=== PATIENT | female | born 1985 | race Caucasian/White ===

== ENCOUNTER 2016-04-07 12:14 | Emergency (ER) | payer OTHER ==
[~2016-04-07] VITALS: Ht 167.6 cm; Wt 97.5 kg
[~2016-04-07 12:14] MED LIST: ACET-704 PO; CYCL10TA2 PO
[2016-04-07 13:57] VITALS: BP 119/56
--- NOTE | 2016-04-07 14:22 | RAD ---
Exam performed: 2 views of the chest. Indication: cough with productive green sputum for 3 days Date of Service:04/07/2016 4:06 PM . Comparison : None available. Findings: PA and lateral radiographs of the chest reveal a normal cardiomediastinal contour. The lungs are clear. No pleural fluid is seen. The visualized osseous structures are unremarkable. Impression: Radiographically normal chest.
--- NOTE | 2016-04-07 14:25 | PHYS DOC ---
Past Medical History Past Medical History: No Pertinent History Past Surgical History: , Tonsillectomy, Tubal ligation Additional Past Surgical Histo: tubal ligation Alcohol Use: None Drug Use: None Adult General Chief Complaint Chief Complaint: COUGH HPI HPI Patient is a 31 year old female presents the emergency department stating that she's had a cough and congestion for the last 3-4 days. She states that she's been having fevers at home. Here in the emergency department she is afebrile. Patient states she's been having a productive cough that is green in color. She has not received the flu immunization this year. Patient states that she has had a sore throat as well. She states that she's been taken Tylenol and ibuprofen and Mucinex and [id number] cough medication without relief. Review of Systems Review of Systems Constitutional: subjective fever Eyes: Denies change in visual acuity, redness, or eye pain [] HENT: nasal congestion denies sore throat [] Respiratory: green productive cough denies shortness of breath [] Cardiovascular: No additional information not addressed in HPI [] GI: Denies abdominal pain, nausea, vomiting, bloody stools or diarrhea [] : Denies dysuria or hematuria [] Musculoskeletal: Denies back pain or joint pain [] Integument: Denies rash or skin lesions [] Neurologic: Denies headache, focal weakness or sensory changes [] Current Medications Current Medications Current Medications Medications (Trade) Dose Ordered Sig/Kieran Start Time Stop Time Status Last Admin Dose Admin Ibuprofen (Motrin) 800 mg 1X ONCE 04/07/16 14:45 04/07/16 14:46 DC 04/07/16 14:38 800 MG Allergies Allergies Allergies Coded Allergies Type Severity Reaction Last Updated Verified Latex, Natural Rubber Allergy Intermediate 07/23/15 Yes nickel Allergy Intermediate 07/23/15 Yes Physical Exam Physical Exam Constitutional: Well developed, well nourished, no acute distress, non-toxic appearance. [] HENT: Normocephalic, atraumatic, bilateral external ears normal, oropharynx moist, no oral exudates, nose normal. Bilateral tympanic membranes appear to be normal. Throat with erythematous and postnasal drip no exudate noted. No uvula deviation noted. Patient with no anterior cervical adenopathy noted. Eyes: PERRLA, EOMI, conjunctiva normal, no discharge. [] Neck: Normal range of motion, no tenderness, supple, no stridor. [] Cardiovascular:Heart rate regular rhythm, no murmur [] Lungs & Thorax: Bilateral breath sounds clear to auscultation [][] Skin: Warm, dry, no erythema, no rash. [] Back: No tenderness Extremities: No tenderness, no cyanosis, no clubbing, ROM intact, no edema. [] Neurologic: Alert and oriented X 3, normal motor function, normal sensory function, no focal deficits noted. [] Psychologic: Affect normal, judgement normal, mood normal. [] Current Patient Data Vital Signs Vital Signs Date Time Temp Pulse Resp B/P Pulse Ox O2 Delivery O2 Flow Rate FiO2 04/07/16 13:57 98.7 70 16 97 Room Air 98.7 Lab Values Laboratory Tests Test 04/07/16 14:03 Influenza Type A Antigen Negative (NEGATIVE) Influenza Type B Antigen Negative (NEGATIVE) EKG EKG [] Radiology/Procedures Radiology/Procedures [][facility] [address], [place] [id number] IMAGING REPORT Signed PATIENT: SINAN DEL ROSARIO ACCOUNT: [id number] : 1985 LOCATION: ER AGE: 31 SEX: F EXAM STATUS: REG ER ORD. PHYSICIAN: GURPREET CHRISTINE NP REASON: cough with productive green sputum PROCEDURE: CHEST PA & LATERAL Exam performed: 2 views of the chest. Indication: cough with productive green sputum for 3 days Date of Service:04/07/2016 4:06 PM . Comparison : None available. Findings: PA and lateral radiographs of the chest reveal a normal cardiomediastinal contour. The lungs are clear. No pleural fluid is seen. The visualized osseous structures are unremarkable. Impression: Radiographically normal chest. DICTATED and SIGNED BY: FELIX MATTA MD DATE: 04/07/16 [id number] CC: GURPREET CHRISTINE TRAFFIC CONTROL TECHNICIAN; NO PCP ~ Course & Med Decision Making Course & Med Decision Making Pertinent Labs and Imaging studies reviewed. (See chart for details) X-Ray Was Negative, Rapid Strep Was Negative. She was influenza swabs were negative. Patient will be placed on Zithromax and discharged home. Recommended cough medication [id number] such as Mucinex DM. Commended plenty of fluids such as water, propel or Gatorade. Signs and symptoms to return back to emergency department as been provided. Patient agrees with discharge instructions treatment regimens and follow-up recommendations. Dragon Disclaimer Dragon Disclaimer This electronic medical record was generated, in whole or in part, using a voice recognition dictation system. Departure Departure Impression: Primary Impression: URI (upper respiratory infection) Disposition: HOME, SELF-CARE Condition: STABLE Referrals: NO PCP (PCP) Patient Instructions: Upper Respiratory Infection, Adult, [id number] Additional Instructions: Home to rest Medication as prescribed Tylenol or ibuprofen for fever chills or generalized body aches and discomfort. You may take Mucinex DM [id number] to help with your cough and congestion. Follow-up the primary care physician in the next 5-7 days. Return back to emergency prior signs and symptoms become worse. Scripts Azithromycin (Zithromax)250 Mg [id number] Mg PO DAILY ANTI-BIOTIC #6 TAB Ref 0 Take 2 tablets today then 1 tablet daily until gone. Prov:GURPREET CHRISTINE NP 04/07/16 GURPREET CHRISTINE NP Apr 07, 2016 14:25
[2016-04-07 14:42] LABS: OBC FLU VALID
[2016-04-07] MEDS ORDERED: IBUPROFEN 800 MG TABLET. PO ONE (14:45)
[2016-04-07] MEDS ORDERED: AZIT250T PO (14:57)
[2016-04-07 15:19] LABS: NEGATIVE OBC STREP NEG; POSITIVE OBC STREP POS
== END 2016-04-07 15:34 | disposition home or self-care (01) ==
LOC: ER 12:14
DX: J06.9 Acute upper respiratory infection, unspecified (principal); Z91.040 Latex allergy status; Z91.048 Other nonmedicinal substance allergy status
CPT/HCPCS: 71020; 87070; 87804; 87880; 99285-25

== ENCOUNTER 2019-12-13 14:48 | Emergency (ER) | payer SELFPAY ==
[~2019-12-13] VITALS: Ht 167.6 cm; Wt 100.0 kg
[~2019-12-13 14:48] MED LIST changes: +AZIT250T PO
--- NOTE | 2019-12-13 15:06 | PHYS DOC ---
Past Medical History Past Medical History: No Pertinent History Past Surgical History: , Tonsillectomy, Tubal ligation Additional Past Surgical Histo: tubal ligation Smoking Status: Current Every Day Smoker Alcohol Use: None Drug Use: None General Adult EDM: Chief Complaint: INSECT BITE HPI: HPI: History obtained from patient. Patient is a 34-year-old female with history of IV drug abuse 4 months ago who presents with chief complaint of lesion to left posterior thigh. She has noticed this for 1 week. States it is flat and red. States it is somewhat circular in nature. Notes it is somewhat crusted and scaly over the top. Denies fevers. Denies pain. Denies redness surrounding the area. Denies any vomiting. Denies any history of MRSA. States she thinks she may been bitten by a spider. Does not report any shaving activity in that area. Denies drainage from the wound. No other complaints. Review of Systems: Review of Systems: Constitutional: Denies fever or chills. [] Eyes: Denies change in visual acuity. [] HENT: Denies nasal congestion or sore throat. [] Respiratory: Denies cough or shortness of breath. [] Cardiovascular: Denies chest pain or edema. [] GI: Denies abdominal pain, nausea, vomiting, bloody stools or diarrhea. [] : Denies dysuria. [] Musculoskeletal: Denies back pain or joint pain. [] Integument: Positive for rash Neurologic: Denies headache, focal weakness or sensory changes. [] Endocrine: Denies polyuria or polydipsia. [] Lymphatic: Denies swollen glands. [] Psychiatric: Denies depression or anxiety. [] Heart Score: Risk Factors: Risk Factors: DM, Current or recent (<one month) smoker, HTN, HLP, family history of CAD, obesity. Risk Scores: Score 0 - 3: 2.5% MACE over next 6 weeks - Discharge Home Score 4 - 6: 20.3% MACE over next 6 weeks - Admit for Clinical Observation Score 7 - 10: 72.7% MACE over next 6 weeks - Early Invasive Strategies Allergies: Allergies: Allergies Coded Allergies Type Severity Reaction Last Updated Verified Latex, Natural Rubber Allergy Intermediate 07/23/15 Yes nickel Allergy Intermediate 07/23/15 Yes Physical Exam: PE: Constitutional: Well developed, well nourished, no acute distress, non-toxic appearance. [] HENT: Normocephalic, atraumatic, bilateral external ears normal, oropharynx moist, no oral exudates, nose normal. [] Eyes: PERRLA, EOMI, conjunctiva normal, no discharge. [] Neck: Normal range of motion, no tenderness, supple, no stridor. [] Cardiovascular:Heart rate regular rhythm, no murmur [] Lungs & Thorax: Bilateral breath sounds clear to auscultation [] Abdomen: soft, no tenderness, no masses, no pulsatile masses. [] Skin: Warm, dry, no erythema, no rash. [] Back: No tenderness, no CVA tenderness. [] Extremities: No tenderness, no cyanosis, no clubbing, ROM intact, no edema. [] Integement: 1 x 1 cm circular flat erythematous ringlike lesion noted to the posterior left thigh. Slight scales overlying. No purpura, bulla, petechiae, or mucous membrane involvement. No crepitus palpated. No surrounding indura tion or palpable fluctuance noted. Neurologic: Alert and oriented X 3, normal motor function, normal sensory function, no focal deficits noted. [] Psychologic: Affect normal, judgement normal, mood normal. [] EKG: EKG: [] Radiology/Procedures: Radiology/Procedures: [] Course & Med Decision Making: Course & Med Decision Making Pertinent Labs and Imaging studies reviewed. (See chart for details) [] Patient is a well-appearing 34-year-old female who presents with chief complaint of lesion to the back of the left thigh. Exam is concerning for ringworm. However early cellulitis cannot be excluded. No signs of deep space infection. Low suspicion for necrotizing fasciitis as there is no crepitus. Reproducible tenderness. Patient be discharged home with a short course of Keflex as well as clotrimazole. Instructed follow-up with her primary care physician in the next 2 to 3 days. Return precautions discussed and understood. Stable for discharge home. Joellen Disclaimer: Joellen Disclaimer: This electronic medical record was generated, in whole or in part, using a voice recognition dictation system. Departure Departure Impression: Primary Impression: Rash Disposition: 01 DC HOME SELF CARE/HOMELESS Condition: STABLE Referrals: NO PCP (PCP) Patient Instructions: Body Ringworm Additional Instructions: [facility] [address] [place] [address] [facility] [address] [place] [address] [facility] [address] [facility] [place] [address] [facility] [address] [place] [address] [facility] [address] [place] [address] [facility] [address] [place] [address] [facility] [place] [address] [place] [address] [facility] [address] [place] [address] [facility] [address] [place] [address] [facility] [address] [place] [address] Scripts Cephalexin (KEFLEX) 500 Mg Capsule 1 CAP PO QID for 5 Days, #20 CAP 0 Refills Prov: JESSICA ROMO DO 12/13/19 Clotrimazole (CLOTRIMAZOLE) 15 Gm Cream..g. 1 MAYCO TP TID, #45 GM Prov: JESSICA ROMO DO 12/13/19 JESSICA ROMO DO Dec 13, 2019 15:06
[2019-12-13 15:07] VITALS: BP 159/90
[2019-12-13] MEDS ORDERED: CEPH-264 PO (15:18)
[2019-12-13] MEDS ORDERED: CLOT15CR23 TP (15:18)
== END 2019-12-13 15:25 | disposition home or self-care (01) ==
LOC: ER 14:48
DX: R21 Rash and other nonspecific skin eruption (principal); L53.9 Erythematous condition, unspecified; F17.200 Nicotine dependence, unspecified, uncomplicated; Z98.51 Tubal ligation status; Z98.890 Other specified postprocedural states; Z91.040 Latex allergy status; Z88.8 Allergy status to other drugs, medicaments and biological substances
CPT/HCPCS: 99283

== ENCOUNTER 2020-08-06 15:24 | Emergency (ER) | payer SELFPAY ==
[~2020-08-06] VITALS: Ht 167.6 cm; Wt 95.4 kg
[~2020-08-06 15:24] MED LIST changes: +CEPH-264 PO; +CLOT15CR23 TP
[2020-08-06] MEDS ORDERED: AMOX875T PO (17:20)
--- NOTE | 2020-08-06 17:21 | ED.ADGEN ---
Past Medical History Past Medical History: No Pertinent History Past Surgical History: , Tonsillectomy, Tubal ligation Additional Past Surgical Histo: tubal ligation Smoking Status: Current Every Day Smoker Alcohol Use: Rarely Drug Use: None General Adult EDM: Chief Complaint: SORE THROAT HPI: HPI: Patient is a 35 year old female, who presents emergency department with complaints of a sore throat, fever, dry cough, and nausea for the last 2 days. She states that her son has similar illness. She denies any vomiting, diarrhea, loss of taste/smell, abdominal pain, back pain, or rash. Patient states she has had some body aches, fatigue, and chills. She denies any known exposure to COVID-19 and she has not been immunized against illness. Patient currently rates her pain 8 out of 10 on the pain scale, she is eating factors, the pain is worse with swallowing. Review of Systems: Review of Systems: Complete ROS is negative unless otherwise noted in HPI. Allergies: Allergies: Allergies Coded Allergies Type Severity Reaction Last Updated Verified Latex, Natural Rubber Allergy Intermediate 07/23/15 Yes nickel Allergy Intermediate 07/23/15 Yes Physical Exam: PE: See Above Constitutional: Well developed, well nourished, no acute distress, non-toxic appearance. [] HENT: Normocephalic, atraumatic, bilateral external ears normal, nose normal. [] Eyes: PERRLA, EOMI, conjunctiva normal, no discharge. [] Neck: Normal range of motion, no stridor. [] Cardiovascular:Heart rate regular rhythm Lungs & Thorax: Respirations even and unlabored, no retractions, no respiratory distress Skin: Warm, dry, no erythema, no rash. [] Extremities: No cyanosis, ROM intact, no edema. [] Neurologic: Alert and oriented X 3, no focal deficits noted. [] Psychologic: Affect normal, judgement normal, mood normal. [] Current Patient Data: Vital Signs: Vital Signs Date Time Temp Pulse Resp B/P (MAP) Pulse Ox O2 Delivery O2 Flow Rate FiO2 08/06/20 16:16 98.4 80 24 152/71 (98) 98 Room Air 98.4 EKG: EKG: [] Heart Score: C/O Chest Pain: No Radiology/Procedures: Radiology/Procedures: Rapid strep negative, Covid test pending. [] Course & Med Decision Making: Course & Med Decision Making Pertinent Labs and Imaging studies reviewed. (See chart for details) 35-year-old female presented emergency department with complaints of a sore throat, nausea, body aches, fatigue, and dry cough. Patient's rapid strep is negative however her son's is positive. A prescription was written for amoxicillin with positive strep exposure. COVID-19 test is still pending. COVID-19 CRITERIA: The patient was evaluated during the global COVID-19 pandemic, and that diagnosis was suspected/considered upon their initial presentation. Their evaluation, treatment and testing was consistent with current guidelines for patients who present with complaints or symptoms that may be related to COVID-19. [] Dragon Disclaimer: Dragon Disclaimer: This electronic medical record was generated, in whole or in part, using a voice recognition dictation system. Departure Departure Impression: Primary Impression: Pharyngitis Additional Impression: Person under investigation for COVID-19 Disposition: 01 HOME / SELF CARE / HOMELESS Condition: STABLE Referrals: NO PCP (PCP) Patient Instructions: Viral and Bacterial Pharyngitis, [id number] Additional Instructions: Fill prescription(s) and use as directed. Recommend warm salt water gargles as needed for relief of discomfort. Alternate Tylenol and ibuprofen as needed for fever/pain. Discard your toothbrush tomorrow and begin using a new toothbrush. Follow-up with primary care doctor as needed. Return to the ER if symptoms worsen or fever does not respond to Tylenol or ibuprofen. Please follow the following quarantine instructions until results are known or symptoms improve: You have been tested for or diagnosed with COVID-19. It is an infection caused by a new type of coronavirus. COVID-19 will cause cold-like or mild flu symptoms in most. It can cause more severe symptoms like problems breathing in some. There is no treatment for COVID-19. The body will clear the infection over time. Self-care will help to ease discomfort. Steps to Take: Self-Care Rest as needed. Healthy habits may help you feel better. Steps include: Choose healthy foods including fruits and vegetables. Drink water throughout the day. Get plenty of sleep each night. If you smoke, try to quit. It may ease breathing. Avoid alcohol. Keep Others Healthy The virus can spread to others. Droplets are released every time you sneeze or cough. The droplets can get into the mouth, nose, or eyes of people near you and lead to infection. To lower the chances of spreading COVID-19 to others: Stay at home until your doctor has said it is safe to leave. If you tested positive this will mean staying isolated until both of the following are true: At least 7 days have passed since the start of illness. You are free of fever for at least 72 hours without the use of medicine. During this time: - Avoid public areas, events, or transportation. Do not return to work or school until your doctor has said it is safe to do so. - Call ahead if you need to go to a medical center. Let them know you may have COVID-19. It will help them guide you where to go. They may also ask you to wear a facemask when you come to the office. - If you call for emergency medical services, let them know you may have COVID- 19. While at home: - Try to avoid close contact with others. Stay about 6 feet away. - If possible, spend most of your time in a separate room from others. - Use a face mask if you will be in close contact with others such as sharing a room or vehicle. - Have someone wipe down common surfaces in the home. Use household darkroom technician every day on areas like doorknobs, counters, or sinks. - Cough or sneeze into a tissue. Throw the tissue away right after use. If a tissue is not available, cough or sneeze into your elbow. - Wash your hands often. Wash them after sneezing or coughing. Use soap and water and wash for at least 20 seconds. Alcohol based hand chicken and fish cleaner can be used if soap and water is not available. - Do not prepare food for others. Avoid sharing personal items like forks, spoons, or toothbrushes. - Avoid close contact with pets while you are sick. There is no evidence of the virus passing to pets. This is a safety step until more is known about this virus. Isolation can be frustrating. Social interaction can help. Keep in touch with friends and family through phone and tech options. You can still interact with others in your home, just keep a safe distance of about 6 feet. Follow-up: Your doctors office will check in with you to see if there are any changes in your health. You may be asked to keep track of symptoms to share with them. They will also let you know when you are clear to be in public again. Problems to Look Out For: Contact your doctor if your recovery is not going as you expect. Get emergency care if you have problems such as: - Trouble breathing - Nonstop chest pain or pressure - Changes in awareness, confusion, or problems waking - Lips or face have bluish color - Worsening of symptoms If you think you have an emergency, call for emergency medical services right away. As taken from [facility] Scripts Amoxicillin (AMOXICILLIN) 875 Mg Tablet 1 TAB PO BID for 10 Days, #20 TAB 0 Refills Prov: CHELSEA SAAVEDRA COLD ROLL CATCHER 08/06/20 Problem Qualifiers Primary Impression: Pharyngitis Pharyngitis/tonsillitis etiology: unspecified etiology Qualified Codes: J02.9 - Acute pharyngitis, unspecified CHELSEA SAAVEDRA COLD ROLL CATCHER Aug 06, 2020 17:21
[2020-08-06 17:30] VITALS: BP 143/70
--- NOTE | 2020-08-07 16:04 | NUR ---
IP: Informed pt of negative covid test. Pt verbalized understanding.
== END 2020-08-06 17:35 | disposition home or self-care (01) ==
LOC: ER 15:24
DX: J02.9 Acute pharyngitis, unspecified (principal); F17.200 Nicotine dependence, unspecified, uncomplicated; Z20.822 Contact with and (suspected) exposure to COVID-19; Z91.040 Latex allergy status; Z88.8 Allergy status to other drugs, medicaments and biological substances
CPT/HCPCS: 87070; 87880; 99283; U0003; U0005